=== PATIENT | female | born 1950 | race Native Hawaiian/Other Pacific Islander ===

== ENCOUNTER 2018-04-29 23:38 | Outpatient (CLI) | payer OTHER ==
[2018-04-30] MEDS ORDERED: TRICOR48 MG PO (00:21)
[2018-04-30] MEDS ORDERED: LISI10TA11 PO (00:21)
[2018-04-30] MEDS ORDERED: AMLODIPINE BESYLATE PO (00:21)
[2018-04-30] MEDS ORDERED: OMEP40CA PO (00:22)
[2018-04-30] MEDS ORDERED: BUPROPN HCL300 MG PO (00:22)
[2018-04-30] MEDS ORDERED: DIVA500T2 PO (00:22)
[2018-04-30] MEDS ORDERED: GABA300C2 PO (00:23)
[2018-04-30] MEDS ORDERED: TIZA4TAB5 PO (00:23)
[2018-04-30] MEDS ORDERED: ADDERALL20 MG PO (00:25)
[2018-04-30] MEDS ORDERED: HYDR-3182 PO (00:25)
[2018-04-30] MEDS ORDERED: PROM25TA52 PO (00:26)
[2018-04-30] MEDS ORDERED: ALBUTEROL0.083 % IN (00:27)
== END 2018-04-29 23:57 | disposition short-term general hospital (02) ==
LOC: AMB 23:38
DX: R10.84 Generalized abdominal pain (principal)
CPT/HCPCS: A0425; A0427

== ENCOUNTER 2018-04-30 00:01 | Inpatient (IN) | payer OTHER ==
[2018-04-30] VITALS: BP 116/74; TEMP 98
[2018-04-30] MEDS ORDERED: LISI10TA11 PO (00:21)
[2018-04-30] MEDS ORDERED: TRICOR48 MG PO (00:21)
[2018-04-30] MEDS ORDERED: AMLODIPINE BESYLATE PO (00:21)
[2018-04-30] MEDS ORDERED: DIVA500T2 PO (00:22)
[2018-04-30] MEDS ORDERED: OMEP40CA PO (00:22)
[2018-04-30] MEDS ORDERED: BUPROPN HCL300 MG PO (00:22)
[2018-04-30] MEDS ORDERED: GABA300C2 PO (00:23)
[2018-04-30] MEDS ORDERED: TIZA4TAB5 PO (00:23)
[2018-04-30] MEDS ORDERED: HYDR-3182 PO (00:25)
[2018-04-30] MEDS ORDERED: ADDERALL20 MG PO (00:25)
[2018-04-30] MEDS ORDERED: PROM25TA52 PO (00:26)
[2018-04-30] MEDS ORDERED: ALBUTEROL0.083 % IN (00:27)
[2018-04-30 00:30] LABS: PLATELET COUNT 192 K/uL (152-353)
[2018-04-30 00:39] LABS: POTASSIUM 3.9 mmol/L (3.6-5.2)
[2018-04-30 01:32] LABS: PARTIAL THROMBOPLASTIN TIME 21.3 SECONDS (24.5-33.6)
[2018-04-30 04:40] VITALS: BP 140/76; TEMP 97.6; BMI 27.0
[2018-04-30 06:32] LABS: PLATELET COUNT 134 K/uL (152-353)
[2018-04-30 07:25] VITALS: BP 111/65; TEMP 98.1
[2018-04-30 11:54] VITALS: BP 113/72; TEMP 98.4
[2018-04-30 16:00] VITALS: BP 115/65; TEMP 98.3
[2018-04-30 20:00] VITALS: BP 123/66; TEMP 98.7
[2018-05-01] VITALS: BP 101/55; TEMP 98.2
[2018-05-01 03:58] VITALS: BP 109/60; TEMP 97.9
[2018-05-01 08:04] VITALS: BP 143/81; TEMP 97.9
[2018-05-01 12:24] VITALS: BP 112/57; TEMP 98.4
[2018-05-01 16:00] VITALS: BP 118/70; TEMP 97.8
[2018-05-01 20:00] VITALS: BP 147/76; TEMP 98.2
[2018-05-02] VITALS: BP 139/79; TEMP 97.7
[2018-05-02 04:00] VITALS: BP 132/64; TEMP 97.5
[2018-05-02 08:00] VITALS: BP 144/81; TEMP 97.8
[2018-05-02 09:04] LABS: PLATELET COUNT 156 K/uL (152-353)
[2018-05-02 09:48] LABS: POTASSIUM 3.8 mmol/L (3.6-5.2)
== END 2018-05-02 13:45 | disposition home or self-care (01) | DRG 378 ==
LOC: ED 00:01 → MED/SURG 03:45
PROVIDERS: Internal Medicine
DX: K92.2 Gastrointestinal hemorrhage, unspecified (principal); F31.89 Other bipolar disorder; K52.89 Other specified noninfective gastroenteritis and colitis; K57.90 Diverticulosis of intestine, part unspecified, without perforation or abscess without bleeding; I10 Essential (primary) hypertension; K21.9 Gastro-esophageal reflux disease without esophagitis; J45.998 Other asthma; E78.4 Other hyperlipidemia; R51 Headache; E86.0 Dehydration
CPT/HCPCS: 80048; 80053; 81000; 82150; 83690; 83735; 85027; 85610; 85730; 96366; 96367; 96374; 96375; J2175; J2405; J2920; J3490; Q9963